=== PATIENT | female | born 1960 | race Hispanic/Latino ===

== ENCOUNTER 2023-05-06 13:38 | Emergency (ER) | payer OTHER ==
[~2023-05-06] VITALS: Ht 149.9 cm; Wt 79.8 kg
[2023-05-06 13:56] VITALS: BP 161/79; PULSE 90; RESP 16
[2023-05-06] MEDS ORDERED: HYDROCODONE/ACETAMINOPHEN 5/325 MG TAB PO ONE (14:30)
[2023-05-06] MEDS ORDERED: KETOROLAC 60 MG VIAL (30MG/ML) IM ONE (14:30)
[2023-05-06] MEDS ORDERED: METH4TAB3 PO (16:01)
[2023-05-06] MEDS ORDERED: IBUP-2077 PO (16:01)
== END 2023-05-06 17:02 | disposition home or self-care (01) ==
LOC: EDH 13:38
DX: M25.551 Pain in right hip (principal); I10 Essential (primary) hypertension; Z90.49 Acquired absence of other specified parts of digestive tract
CPT/HCPCS: 99283; 73502; 96372; J1885